=== PATIENT | female | born 1955 | race Caucasian/White ===

== ENCOUNTER 2018-03-28 12:17 | Outpatient (CLI) | payer OTHER ==
--- NOTE | 2018-03-29 10:01 | PET ---
PET EXAM WITH CT ATTENUATION CORRECTION: Date: 03/28/18 HISTORY: Cervical cancer. COMPARISON: None. TECHNIQUE: The patient was administered 13.8 mCi of F18-FDG. PET scan with CT attenuation correction was obtaine d from the skull base to the proximal thighs. FINDINGS: HEAD/NECK: No abnormal FDG localization. CHEST: No abnormal FDG localization. ABDOMEN/PELVIS: There is increased FDG avidity involving the left periaortic lymph nodes. The maximum SUV ranges betw een 2.0 and 3.1. There is increased FDG avidity involving left external iliac lymph nodes with a maximum SUV of 3.3. T here is FDG avidity involving right external iliac lymph nodes with a maximum SUV of 2.7. There is marked FDG avidity involving the cervix with a maximum SUV of 13.3. There is marked FDG avidity along the posterior left hemipelvis, which corresponds to the distal left ureter. OSSEOUS STRUCTURES: No abnormal FDG localization. IMPRESSION: FDG avidity involving the cervix, compatible with patient's reported history of primary cervical canc er. There is evidence of metastasis involving bilateral external iliac, as well as left periaortic/re troperitoneal lymph nodes. POS: JACOB
== END 2018-03-28 12:18 | disposition home or self-care (01) ==
LOC: PET 12:17
PROVIDERS: ATTEND Internal Medicine Hematology & Oncology
DX: C53.9 Malignant neoplasm of cervix uteri, unspecified (principal)
CPT/HCPCS: 78815; A9552

== ENCOUNTER 2018-04-22 18:23 | Inpatient (IN) | payer OTHER ==
[2018-04-22 19:38] LABS: Anion Gap 13 mmol/L (10-20); BUN (Urea Nitrogen) 23 mg/dL (9.8-20.1); Calc. Creatinine Clearance 0 mL/min (70-130); Calcium 6.7 mg/dL (7.8-10.44); Carbon Dioxide 18 mmol/L (22-29); Chloride 105 mmol/L (98-107); Estimated GFR-MDRD 39; Glucose 117 mg/dL (70-105); Potassium 3.3 mmol/L (3.5-5.1); Sodium 133 mmol/L (136-145)
[2018-04-22 19:39] LABS: INR-International Normal Ratio 15.3
[2018-04-22 19:50] LABS: Anisocytosis SLIGHT = 6-15 cells (100X) (0-5/hpf); Band 45 % (5-11); Eosinophils 4 % (0-10); Hemoglobin 9.2 g/dL (12.0-16.0); Large Platelets SLIGHT; Lymphocytes 10 % (21-51); MDiff Complete? YES; Mean Corpuscular HGB CONC 35.2 g/dL (32.0-36.0); Mean Corpuscular Hemoglobin 29.5 pg (27.0-31.0); Mean Corpuscular Volume 83.9 fL (78.0-98.0); Monocytes 4 % (0-10); Neutrophil 37 % (42-75); PLT Morphology Comment Appears Decreased; Platelet Count 79 thou/uL (130-400); Polychromasia SLIGHT = 2-3 cells (100X) (0-2/hpf); RBC Distribution Width 12.5 % (11.5-14.5); Reflex for Review?? NO; Target Cells SLIGHT = 2-5 cells (100X) (0-1/hpf); White Blood Cell (WBC) Count 1.9 thou/uL (4.8-10.8)
[2018-04-22] MEDS ORDERED: Potassium Chloride 10 MEQ/100 ML PREMIX BAG ONE (20:35)
[2018-04-22] MEDS ORDERED: Phytonadione 10 MG/ML AMP ONE (20:36)
[2018-04-22] MEDS ORDERED: NS 0.9% w/ 20 MEQ KCL 1,000 ML ONE (20:41)
[2018-04-22 23:07] VITALS: BMI 28.5
[2018-04-22] MEDS ORDERED: Ondansetron ODT 4 MG TAB SL PRN (23:09)
[2018-04-22] MEDS ORDERED: Ondansetron HCl/PF 4 MG/2 ML Vial IVP PRN (23:09)
[2018-04-22] MEDS ORDERED: NS 0.9% w/ 20 MEQ KCL 1,000 ML IV SCH (23:15)
[2018-04-23] MEDS ORDERED: Prochlorperazine Maleate 5 MG TAB PO PRN (04:24)
[2018-04-23 05:06] LABS: Hemoglobin 9.3 g/dL (12.0-16.0)
[2018-04-23] MEDS ORDERED: Eucerin (Mineral Oil/Petrolatum,White) 30 gm Jar TOP PRN (06:49)
[2018-04-23] MEDS ORDERED: Ondansetron HCl/PF 4 MG/2 ML Vial IVP PRN (06:49)
[2018-04-23] MEDS ORDERED: Senokot 8.6 MG TAB PO PRN (06:49)
[2018-04-23] MEDS ORDERED: Acetaminophen 325 MG TAB PO PRN (06:49)
[2018-04-23] MEDS ORDERED: Loratadine 10 MG TAB PO PRN (06:49)
[2018-04-23] MEDS ORDERED: Loperamide HCl 2 MG CAP PO PRN (06:49)
[2018-04-23] MEDS ORDERED: Ondansetron ODT 4 MG TAB PO PRN (06:49)
[2018-04-23] MEDS ORDERED: Chloraseptic Spray 180 ml Bottle PO PRN (06:49)
[2018-04-23] MEDS ORDERED: Zolpidem Tartrate 5 MG TAB PO PRN (06:49)
[2018-04-23] MEDS ORDERED: Mag-Al 1200 mg/1200 mg/30 ML UDCUP PO PRN (06:49)
[2018-04-23] MEDS ORDERED: Milk Of Magnesia 30 ML UDCUP PO PRN (06:49)
[2018-04-23] MEDS ORDERED: Sodium Chloride 0.65% Nasal 44 ML BOT EA NARE PRN (06:49)
[2018-04-23] MEDS ORDERED: Artificial Tears 18 DROP/0.9 ML EA EYE PRN (06:49)
[2018-04-23] MEDS ORDERED: Diabetic Tussin 200 MG/10 ML UDCUP PO PRN (06:49)
[2018-04-23] MEDS ORDERED: 1/2 NS w/KCL 20 mEq 1,000 ML IV SCH (07:00)
[2018-04-23 07:47] LABS: INR-International Normal Ratio 2.4; PTT 49.2 SEC (22.9-36.1); Prothrombin Time 26.4 SEC (12.0-14.7)
[2018-04-23 07:51] LABS: #Eosinphils 0.1 thou/uL (0.0-0.7); #Lymphocytes 0.2 thou/uL (1.20-3.40); #Monocytes 0.2 thou/uL (0.11-0.59); #Neutrophils 1.6 thou/uL (1.40-6.50); %Basophils 0.3 % (0.0-1.0); %Eosinophils 2.6 % (0.0-10.0); %Monocytes 9.6 % (0.0-10.0); %Neutrophils 78.5 % (42.0-75.0); Mean Corpuscular HGB CONC 33.7 g/dL (32.0-36.0); Mean Corpuscular Hemoglobin 30.1 pg (27.0-31.0); Mean Corpuscular Volume 89.5 fL (78.0-98.0); Platelet Count 90 thou/uL (130-400); RBC Distribution Width 13.8 % (11.5-14.5); Red Blood Cell (RBC) Count 2.99 mill/uL (4.20-5.40)
[2018-04-23 07:58] LABS: Anion Gap 14 mmol/L (10-20); BUN (Urea Nitrogen) 28 mg/dL (9.8-20.1); Calc. Creatinine Clearance 50 mL/min (70-130); Calcium 6.9 mg/dL (7.8-10.44); Carbon Dioxide 18 mmol/L (22-29); Chloride 106 mmol/L (98-107); Estimated GFR-MDRD 39; Glucose 91 mg/dL (70-105); Magnesium 1.6 mg/dL (1.6-2.6); Phosphorus 3.4 mg/dL (2.3-4.7); Potassium 3.8 mmol/L (3.5-5.1); Sodium 134 mmol/L (136-145)
[2018-04-23 08:07] LABS: Lactic Acid 0.8 mmol/L (0.5-2.2)
[2018-04-23] MEDS: Famotidine 20 MG TAB PO SCH (10:16)
[2018-04-23] MEDS: Saccharomyces boulardii 250 MG CAP PO SCH (10:17)
--- NOTE | 2018-04-23 11:04 | HP ---
PRIMARY CARE PHYSICIAN: Dr. Miguelito Bermeo. PRIMARY ONCOLOGIST: Dr. Maria E Lee. REASON FOR ADMISSION: Coumadin toxicity, diarrhea. HISTORY OF PRESENT ILLNESS: A 62-year-old female who has history of mechanical aortic valve replacement done about 13 years ago and she is chronically on warfarin therapy. She required aortic valve replacement because of her childhood history of rheumatic fever. Normally, patient's Coumadin level monitored by Dr. Miguelito Bermeo. The patient reports that for the last couple of months, she was busy with her new diagnosis of cancer related treatment and investigation and that is why she was not able to make appointment with Dr. Bermeo and she did not check her warfarin level. She was taking warfarin 4 mg daily basis. The patient has diagnosis of cervical and ovarian cancer and she is following Dr. Marina in [place]. She is planned for intracervical radiation therapy in coming weeks. The patient is getting chemotherapy here locally through Dr. Sanderson. The patient gets chemotherapy every . She reports that she had a total of 4-week cycles of chemotherapy and she is going to get 2 more chemotherapy cycle in coming weeks. The patient is also getting radiation therapy Wednesday to Wednesday for last 4 weeks. Patient saw primary oncologist yesterday and patient's routine blood tests showed INR 13. Patient normally gets diarrhea after chemotherapy and patient was having several loose bowel movement. Yesterday, she was not exposed to any antibiotic therapy. She was not having any nausea or vomiting. She did not have any fever, chills, lightheadedness, dizziness. She denies any trauma. She denies any kind of blood loss anywhere from her body. She was instructed to go to emergency room for evaluation. She went to [facility] where they did routine blood tests and patient was found with an INR 15 and subsequently patient was transferred to our hospital and she was admitted to telemetry floor as a full admission. Patient reports that after taking Imodium , patient's diarrhea is also getting better. When I saw her this morning, patient wanted to eat food. Patient was given Vitamin K 5 mg IM at [facility] and patient was also given IV fluid with potassium. Currently, patient is feeling much better. REVIEW OF SYSTEMS: The following complete review of systems was negative, unless otherwise mentioned in the HPI or below: Constitutional: Weight loss or gain, ability to conduct usual activities. Skin: Rash, itching. Eyes: Double vision, pain. ENT/Mouth: Nose bleeding, neck stiffness, pain, tenderness. Cardiovascular: Palpitations, dyspnea on exertion, orthopnea. Respiratory: Shortness of breath, wheezing, cough, hemoptysis, fever or night sweats. Gastrointestinal: Poor appetite, abdominal pain, heartburn, nausea, vomiting, constipation, or diarrhea. Genitourinary: Urgency, frequency, dysuria, nocturia. Musculoskeletal: Pain, swelling. Neurologic/Psychiatric: Anxiety, depression. Allergy/Immunologic: Skin rash, bleeding tendency. Please see my HPI for pertinent positive and negative. All other review of systems reviewed and negative except as mentioned in the HPI. PAST MEDICAL HISTORY: History of rheumatic fever when she was a child, rheumatic heart disease required aortic valve replacement, recent diagnosis of cervical or ovarian cancer, hypertension, chronic anticoagulation with warfarin due to mechanical aortic valve. PAST SURGICAL HISTORY: Aortic valve replacement and cholecystectomy. PAST PSYCHIATRIC HISTORY: Reviewed and negative. SOCIAL HISTORY: Patient smokes about half pack per day. She denies any alcohol abuse. She denies any other illicit drug abuse. She lives at home with family. She is . FAMILY HISTORY: No strong family history of premature coronary artery disease, stroke or cancer. ALLERGIES: No known drug allergy. CURRENT HOME MEDICATIONS: Coreg 25 mg p.o. b.i.d., Lomotil 2 tablets p.o. as directed, Zofran ODT 8 mg q.8 hourly p.r.n., potassium chloride 20 mEq p.o. daily, prochlorperazine 10 mg q.4 hourly p.r.n., ramipril 10 mg p.o. b.i.d., warfarin 4 mg p.o. daily. EMERGENCY ROOM COURSE: Patient was given vitamin K 5 mg IM and potassium chloride with IV fluid. PHYSICAL EXAMINATION: VITAL SIGNS: On arrival, blood pressure 120/58, pulse 77, respiratory rate 20, temperature 98.0, saturation 100% on room air, weight 66.2 kilogram. GENERAL: Patient is currently alert, awake, no obvious acute distress. HEAD: Normocephalic, atraumatic. EYES: Pupils round, reactive to light. Extraocular muscle intact. ENT: Oropharynx within normal limits. Moist mucous membranes. No oral lesion , no pharyngeal erythema, no exudate. NECK: Supple, no JVD, no thyromegaly, no carotid bruit, no jugular venous distention. LUNGS: Clear to auscultation without any rhonchi or rales. CARDIAC: S1 and S2 regular. No murmur, no gallop, no rub. ABDOMEN: Soft, bowel sounds present, nontender, nondistended. No organomegaly , no peritoneal sign, no guarding, no rigidity, no rebound. BACK: Examination unremarkable, no CVA tenderness. EXTREMITIES: Upper extremity passive movements of all joints are normal. Lower extremity passive movements of all joints are normal. No edema. Good peripheral pulsation. SKIN: No skin rash. HEMATOLOGICAL SYSTEM: No lymphadenopathy. PSYCHIATRIC: Normal affect. NEUROLOGIC: Nonfocal examination. SIGNIFICANT LABORATORY DATA: CBC: WBC 1.9, hemoglobin 9.2, platelets 79. INR 15.3. Sodium 133, potassium 3.3, chloride 105, carbon dioxide 18, anion gap 13 , BUN 23, creatinine 1.37, glucose 117, calcium 6.7, phosphorus 3.4, magnesium 1.6, lactic acid 0.8. ASSESSMENT AND PLAN: 1. Warfarin induced coagulopathy, likely due to her noncompliance with monitoring. Patient did not check her INR for 2 months and she was on warfarin 4 mg p.o. daily. In the emergency room, she was given vitamin K 5 mg and she has received 2 units of FFP. In this way we have reversed her warfarin induced coagulopathy. We will repeat PT/INR and if level goes below 2, then we will start warfarin 4 mg p.o. daily. I provided patient education to monitor INR through Dr. Sanderson's office versus primary care physician. The patient does not have any active bleeding from any site with this coagulopathy. 2. Pancytopenia, likely related with chemotherapy. Patient has leukopenia, anemia, and thrombocytopenia. She is receiving every week chemotherapy and last chemotherapy was on last . 3. Diarrhea, likely related with chemo side effects. The patient clinically appeared dehydrated. The patient is given IV fluid with KCl at 75 mL per hour. We are going to send stool for infection workup if patient able to give samples to rule out undiagnosed stool infection which is less likely. At this point, we will not start any antibiotic therapy given her hemodynamic stability and afebrile nature. 4. Volume depletion, likely due to diarrhea. As mentioned above, we are continuing with IV fluid with NS with KCl and we will repeat labs tomorrow. 5. Hyponatremia and hypokalemia. We are replacing NS with KCl and we will repeat a BMP tomorrow. 6. Acute/chronic kidney failure. We will monitor renal function and avoid nephrotoxin agents 7. Tobacco abuse disorder. Smoking cessation counseling given. Healthy lifestyle measures discussed with the patient. 8. Hypertension. We will continue Coreg 25 mg p.o. b.i.d. and ramipril 10 mg p.o. b.i.d. if blood pressure permits. 9. History of cervical and ovarian cancer on chemoradiation therapy. Patient will follow up with Dr. Sanderson after discharge and we will consult while in hospital as well. 10. Deep venous thrombosis prophylaxis, SCD boots. No Lovenox because of low platelet count. 11. Gastrointestinal prophylaxis, Pepcid 20 mg p.o. daily. CODE STATUS: Patient is FULL CODE. Patient's is surrogate decision maker. Disposition plan based on clinical course. We are expecting patient's stay in hospital more than 2 midnights. Plan of care discussed with the patient in detail. MTDD
[2018-04-23] MEDS: 1/2 NS w/KCL 20 mEq 1,000 ML IV SCH (12:47)
[2018-04-23 13:34] LABS: INR-International Normal Ratio 1.6
[2018-04-23] MEDS ORDERED: Warfarin Sodium 2 MG TAB PO SCH (17:00)
[2018-04-23] MEDS ORDERED: Carvedilol 25 MG TAB PO SCH (17:15)
[2018-04-23] MEDS ORDERED: Ramipril 5 MG CAP PO SCH (17:15)
--- NOTE | 2018-04-23 18:26 | CON ---
DATE OF CONSULTATION: 04/23/2018 HISTORY OF PRESENT ILLNESS: Ms. Cordero is a 62-year-old female with locally advanced cervical cancer , currently getting treatment with chemotherapy and radiation. She also has a history of aortic valv e replacement, on Coumadin. For the last week to 10 days, she has had increasing diarrhea as well a s decreased oral intake and has felt poorly. She came into the office on the day of admission with i ncreasing diarrhea and volume depletion. She was hydrated and sent home, but her INR was checked and her INR was up to 13. She has not had her INR checked in over a month and was taking the same dose of Coumadin despite decreased oral intake. She was sent to the emergency room, but denies any bleedi ng. She did have some easy bruising, but no nosebleeds, no gum bleeding, no rectal bleeding, no gigi turia. She is weak and tired from the diarrhea, mostly. She even has had some incontinence. She kamara s tried to start oral potassium, magnesium, but this has made the diarrhea worse. This morning, she is feeling somewhat better after being hydrated overnight and her INR was 15 upon admission, but is d own to 2.4 this morning. PAST MEDICAL HISTORY: 1. Mechanical valve replacement with a history of rheumatic fever as a child. 2. Recent diagnosis of stage III cervical cancer. 3. Hypertension. CURRENT MEDICATIONS: 1. Tylenol p.r.n. 2. [place] p.r.n. 3. Maalox p.r.n. 4. Pepcid 20 mg p.o. q. day. 5. Guaifenesin p.r.n. 6. Hydralazine 10 mg IV q.4 hours p.r.n. 7. Imodium 2 mg p.o. q. 2 hours p.r.n. 8. Claritin 10 mg p.o. q. day. 9. Milk of magnesia 30 mL p.o. q. day. 10. Zofran 4 mg p.o. q.6 hours p.r.n. 11. Zofran 4 mg IV q.6 hours p.r.n. 12. Half normal saline with potassium chloride. 13. Compazine 10 mg p.o. q. 4 hours p.r.n. 14. Florastor 250 mg p.o. q. day. 15. Senokot 2 tabs p.o. at bedtime p.r.n. 16. Refugio nasal spray. 17. Ambien 5 mg p.o. at bedtime. ALLERGIES: No known drug allergies. FAMILY HISTORY: Noncontributory. SOCIAL HISTORY: She is here with her and granddaughter, who appear quite supportive. She de nies current tobacco use, nothing other than occasional alcohol use. REVIEW OF SYSTEMS: Otherwise, 10-point review of systems is negative. PHYSICAL EXAMINATION: VITAL SIGNS: Temperature 97.2, respirations 16, pulse 66, O2 sat 97% on room air, and blood pressure 146/85. GENERAL: She is quite conversant in bed, in no acute distress. HEENT: Extraocular muscles are intact. Pupils round, and reactive to light. She has no oral cavity lesions. NECK: Supple, without lymphadenopathy. HEART: Regular rhythm with a 2/6 systolic murmur. LUNGS: Clear to auscultation bilaterally. ABDOMEN: Hypoactive bowel sounds. Soft, nontender, nondistended. EXTREMITIES: No edema, no tenting, no clubbing. LABORATORY DATA: White blood cell count 2.0, hemoglobin 9.0, platelets 90. INR 15.3 on admission do wn to 2.4. Sodium 134, potassium 3.8, chloride 106, CO2 of 18, BUN 28, creatinine 1.3, glucose 91, c alcium 6.9, phos 3.4, and magnesium 1.6. ASSESSMENT: Ms. Cordero is a 62-year-old female with: 1. 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 2. Diarrhea secondary to radiation and chemotherapy. 3. Volume depletion secondary to diarrhea. 4. Coagulopathy secondary to Coumadin and poor oral intake. 5. History of mechanical valve replacement. PLAN: 1. She has already been hydrated. We are following her potassium and magnesium closely. I would re commend if her INR falls below 2 that she be started on anticoagulation since she does have a mechani mor valve. 2. Continue Imodium and Lomotil. 3. Clostridium difficile has been checked on her stool and we will follow this up.
[2018-04-24] MEDS: 1/2 NS w/KCL 20 mEq 1,000 ML IV SCH (01:34)
[2018-04-24 04:58] LABS: INR-International Normal Ratio 1.2; Prothrombin Time 14.8 SEC (12.0-14.7)
[2018-04-24 06:45] LABS: Hemoglobin 8.9 g/dL (12.0-16.0); Platelet Count 111 thou/uL (130-400)
[2018-04-24] MEDS ORDERED: Enoxaparin Sodium 40 MG/0.4 ML SYRINGE SC SCH (08:30)
[2018-04-24] MEDS: Famotidine 20 MG TAB PO SCH (08:42)
[2018-04-24] MEDS: Carvedilol 25 MG TAB PO SCH ×2 (08:42→20:23)
[2018-04-24] MEDS: Ramipril 5 MG CAP PO SCH ×2 (08:42→20:23)
[2018-04-24] MEDS: Saccharomyces boulardii 250 MG CAP PO SCH (08:42)
--- NOTE | 2018-04-24 10:05 | PDOC.PN ---
- Subjective Encounter Start Date: 04/24/18 Encounter Start Time: 08:30 -: old records requested/rev she has less diarrhoea, her inr is now subtherapeutic, no fever - Objective Resuscitation Status: Resuscitation Status FULL:Full Resuscitation MAR Reviewed: Yes Vital Signs & Weight: Vital Signs (12 hours) Temp Pulse Resp BP Pulse Ox 04/24/18 07:31 97.7 F 65 16 191/74 H 98 04/24/18 04:00 97.6 F 63 16 146/65 H 94 L 04/24/18 00:00 97.7 F 60 16 149/68 H 95 Weight Admit Weight 161 lb Weight 161 lb 4.8 oz I&O: 04/23/18 04/24/18 04/25/18 06:59 06:59 06:59 Intake Total 1831 Balance 1831 Result Diagrams: 04/24/18 04:21 04/23/18 07:12 EKG Reviewed by me: Yes (nsr) Phys Exam - Physical Examination Constitutional: NAD HEENT: PERRLA, moist MMs, sclera anicteric Neck: no JVD, supple Respiratory: no wheezing, no rales, no rhonchi Cardiovascular: RRR, no significant murmur, no rub prosthetic click+ Gastrointestinal: soft, non-tender, no distention, positive bowel sounds Musculoskeletal: no edema, pulses present Neurological: non-focal, normal sensation, moves all 4 limbs Lymphatic: no nodes Psychiatric: normal affect, A&O x 3 Skin: no rash, normal turgor Dx/Plan (1) Warfarin-induced coagulopathy Code(s): D68.32 - HEMORRHAGIC DISORD D/T EXTRINSIC CIRCULATING ANTICOAGULANTS; T45.515A - ADVERSE EFFECT OF ANTICOAGULANTS, INITIAL ENCOUNTER Status: Resolved (2) Diarrhea Code(s): R19.7 - DIARRHEA, UNSPECIFIED Status: Acute (3) Pancytopenia due to chemotherapy Code(s): D61.810 - ANTINEOPLASTIC CHEMOTHERAPY INDUCED PANCYTOPENIA Status: Acute (4) Volume depletion Code(s): E86.9 - VOLUME DEPLETION, UNSPECIFIED Status: Resolved (5) Hyponatremia Code(s): E87.1 - HYPO-OSMOLALITY AND HYPONATREMIA Status: Resolved (6) Hypokalemia Code(s): E87.6 - HYPOKALEMIA Status: Resolved (7) Cervical cancer Code(s): C53.9 - MALIGNANT NEOPLASM OF CERVIX UTERI, UNSPECIFIED Status: Chronic (8) Hypertension Code(s): I10 - ESSENTIAL (PRIMARY) HYPERTENSION Status: Chronic - Plan cont current plan of care, plan discussed w/ family * will give lovenox one dose * increase warfarin 4 mg today * repeat labs tomorrow * will ask radiation oncology if they can do radiation in hospital before discharge or she has to maintain her regular time in case she can be discharged tomorrow * medication reviewed as below * symptomatic treatment * discussed with family. Review of Systems - Review of Systems Eyes: negative: Pain, Vision Change, Conjunctivae Inflammation, Eyelid Inflammation, Redness, Other ENT: negative: Ear Pain, Ear Discharge, Nose Pain, Nose Discharge, Nose Congestion, Mouth Pain, Mouth Swelling, Throat Pain, Throat Swelling, Other Respiratory: negative: Cough, Dry, Shortness of Breath, Hemoptysis, SOB with Excertion, Pleuritic Pain, Sputum, Wheezing Cardiovascular: negative: chest pain, palpitations, orthopnea, paroxysmal nocturnal dyspnea, edema, light headedness, other Gastrointestinal: Diarrhea. negative: Nausea, Vomiting, Abdominal Pain, Constipation, Melena, Hematochezia, Other Genitourinary: negative: Dysuria, Frequency, Incontinence, Hematuria, Retention , Other Musculoskeletal: negative: Neck Pain, Shoulder Pain, Arm Pain, Back Pain, Hand Pain, Leg Pain, Foot Pain, Other Skin: negative: Rash, Lesions, Phil, Bruising, Other - Medications/Allergies Allergies/Adverse Reactions: Allergies Allergy/AdvReac Type Severity Reaction Status Date / Time No Known Drug Allergies Allergy Verified 04/22/18 23:06 Medications: Current Medications Acetaminophen (Tylenol) 650 mg PO Q4H PRN PRN Reason: Headache/Fever or Pain Hydrocodone Bitart/Acetaminophen ([place] 5/325) 1 tab PO Q4H PRN PRN Reason: Moderate Pain (4-6) Al Hydroxide/Mg Hydroxide (Maalox) 30 ml PO Q6H PRN PRN Reason: Heartburn or Indigestion Artificial Tears (Tears Naturale) 0 drop EA EYE PRN PRN PRN Reason: Dry Eyes Carvedilol (Coreg) 25 mg PO BID VAR[facility] Last Admin: 04/24/18 08:42 Dose: 25 mg Enoxaparin Sodium (Lovenox) 30 mg SC ONE [facility] Enoxaparin Sodium (Lovenox) 70 mg SC 0900,2100 [facility] Famotidine (Pepcid) 20 mg PO DAILY [facility] Last Admin: 04/24/18 08:42 Dose: 20 mg Guaifenesin (Robitussin Sf) 200 mg PO Q4H PRN PRN Reason: Cough Hydralazine HCl (Apresoline) 10 mg SLOW IVP Q4H PRN PRN Reason: Systolic BP > 180 Loperamide HCl (Imodium) 2 mg PO PRN PRN PRN Reason: Diarrhea/Loose Stools Loratadine (Claritin) 10 mg PO DAILYPRN PRN PRN Reason: Sinus Symptoms Magnesium Hydroxide (Milk Of Magnesium) 30 ml PO DAILYPRN PRN PRN Reason: Constipation Mineral Oil/White Petrolatum (Eucerin Cream) 0 gm TOP BIDPRN PRN PRN Reason: Dry Skin Ondansetron HCl (Zofran Odt) 4 mg PO Q6H PRN PRN Reason: Nausea/Vomiting Ondansetron HCl (Zofran) 4 mg IVP Q6H PRN PRN Reason: Nausea/Vomiting Phenol (Chloraseptic [place] 180 Ml Bot) 0 ml PO PRN PRN PRN Reason: Sore Throat Prochlorperazine Maleate (Compazine) 10 mg PO Q4H PRN PRN Reason: Nausea Ramipril (Altace) 10 mg PO BID [facility] Last Admin: 04/24/18 08:42 Dose: 10 mg Saccharomyces Boulardii (Florastor) 250 mg PO DAILY [facility] Last Admin: 04/24/18 08:42 Dose: 250 mg Senna (Senokot) 2 tab PO HSPRN PRN PRN Reason: Constipation Sodium Chloride ([place] Nasal [place] 0.65%) 0 ml EA NARE QIDPRN PRN PRN Reason: Nasal Congestion Warfarin Sodium (Coumadin) 4 mg PO 1700 [facility] Zolpidem Tartrate (Ambien) 5 mg PO HSPRN PRN PRN Reason: Insomnia
[2018-04-24] MEDS ORDERED: Enoxaparin Sodium 30 MG/0.3 ML SYRINGE SC SCH (10:30)
[2018-04-24] MEDS: hydrALAZINE 20 MG/ML VIAL SLOW IVP PRN (11:06)
[2018-04-24 16:06] LABS: Hemoglobin 8.9 g/dL (12.0-16.0); Platelet Count 84 thou/uL (130-400)
[2018-04-24] MEDS: Warfarin Sodium 2 MG TAB PO SCH (16:11)
[2018-04-24] MEDS: Enoxaparin Sodium 80 MG/0.8 ML SYRINGE SC SCH (20:23)
[2018-04-24] MEDS: HYDROcodone/Acetaminophen 5/325 mg Tablet PO PRN (20:24)
[2018-04-25 04:53] LABS: INR-International Normal Ratio 1.1; Prothrombin Time 14.7 SEC (12.0-14.7)
[2018-04-25 04:57] LABS: #Lymphocytes 0.3 thou/uL (1.20-3.40); #Monocytes 0.2 thou/uL (0.11-0.59); #Neutrophils 1.6 thou/uL (1.40-6.50); %Eosinophils 1.8 % (0.0-10.0); %Lymphocytes 14.1 % (21.0-51.0); %Monocytes 9.6 % (0.0-10.0); %Neutrophils 74.6 % (42.0-75.0); Hemoglobin 8.9 g/dL (12.0-16.0); Mean Corpuscular Hemoglobin 31.7 pg (27.0-31.0); Mean Corpuscular Volume 90.4 fL (78.0-98.0); Mean Platelet Volume 8.4 fL (7.4-10.4); Platelet Count 82 thou/uL (130-400); RBC Distribution Width 13.9 % (11.5-14.5); Red Blood Cell (RBC) Count 2.81 mill/uL (4.20-5.40); White Blood Cell (WBC) Count 2.2 thou/uL (4.8-10.8)
[2018-04-25 05:14] LABS: ALT (SGPT) 13 U/L (8-55); AST (SGOT) 13 U/L (5-34); Albumin 3.2 g/dL (3.5-5.0); Alkaline Phosphatase 126 U/L (40-150); Anion Gap 13 mmol/L (10-20); BUN (Urea Nitrogen) 25 mg/dL (9.8-20.1); Bilirubin, Total 0.7 mg/dL (0.2-1.2); Calc. Creatinine Clearance 68 mL/min (70-130); Calcium 7.9 mg/dL (7.8-10.44); Carbon Dioxide 18 mmol/L (22-29); Chloride 107 mmol/L (98-107); Estimated GFR-MDRD 56; Globulin 2.9 g/dL (2.4-3.5); Glucose 89 mg/dL (70-105); Potassium 3.5 mmol/L (3.5-5.1); Protein, Total 6.1 g/dL (6.0-8.3); Sodium 134 mmol/L (136-145)
[2018-04-25] MEDS: Saccharomyces boulardii 250 MG CAP PO SCH (08:34)
[2018-04-25] MEDS: Carvedilol 25 MG TAB PO SCH ×2 (08:34→20:21)
[2018-04-25] MEDS: Ramipril 5 MG CAP PO SCH ×2 (08:34→20:21)
[2018-04-25] MEDS: Famotidine 20 MG TAB PO SCH (08:34)
[2018-04-25] MEDS: Enoxaparin Sodium 80 MG/0.8 ML SYRINGE SC SCH ×2 (08:34→20:22)
[2018-04-25] MEDS: HYDROcodone/Acetaminophen 5/325 mg Tablet PO PRN ×2 (10:45→20:29)
--- NOTE | 2018-04-25 11:15 | PDOC.PN ---
- Subjective Encounter Start Date: 04/25/18 Encounter Start Time: 09:00 Patient seen and examined. No new complaints. No overnight events she denies chest pain,dyspnea, now her INR is subtherapeutic - Objective Resuscitation Status: Resuscitation Status FULL:Full Resuscitation MAR Reviewed: Yes Vital Signs & Weight: Vital Signs (12 hours) Temp Pulse Resp BP Pulse Ox 04/25/18 08:00 97.7 F 74 14 179/74 H 96 04/25/18 03:43 97.8 F 68 16 141/63 H 94 L 04/24/18 23:42 97.8 F 65 16 171/70 H 95 Weight Admit Weight 161 lb Weight 161 lb 4.8 oz I&O: 04/24/18 04/25/18 04/26/18 06:59 06:59 06:59 Intake Total 1831 860 Balance 1831 860 Result Diagrams: 04/25/18 04:22 04/25/18 04:22 EKG Reviewed by me: Yes (nsr) Phys Exam - Physical Examination Constitutional: NAD HEENT: PERRLA, moist MMs, sclera anicteric Neck: no JVD, supple Respiratory: no wheezing, no rales, no rhonchi Cardiovascular: RRR, no significant murmur, no rub prosthetic click+ Gastrointestinal: soft, non-tender, no distention, positive bowel sounds Musculoskeletal: no edema, pulses present Neurological: non-focal, normal sensation, moves all 4 limbs Psychiatric: normal affect, A&O x 3 Skin: no rash, normal turgor Dx/Plan (1) Warfarin-induced coagulopathy Code(s): D68.32 - HEMORRHAGIC DISORD D/T EXTRINSIC CIRCULATING ANTICOAGULANTS; T45.515A - ADVERSE EFFECT OF ANTICOAGULANTS, INITIAL ENCOUNTER Status: Resolved (2) Diarrhea Code(s): R19.7 - DIARRHEA, UNSPECIFIED Status: Resolved Comment: due to chemotherapy and radiation therapy for cervical cancer (3) Pancytopenia due to chemotherapy Code(s): D61.810 - ANTINEOPLASTIC CHEMOTHERAPY INDUCED PANCYTOPENIA Status: Acute (4) Volume depletion Code(s): E86.9 - VOLUME DEPLETION, UNSPECIFIED Status: Resolved (5) Hyponatremia Code(s): E87.1 - HYPO-OSMOLALITY AND HYPONATREMIA Status: Resolved (6) Hypokalemia Code(s): E87.6 - HYPOKALEMIA Status: Resolved (7) Cervical cancer Code(s): C53.9 - MALIGNANT NEOPLASM OF CERVIX UTERI, UNSPECIFIED Status: Chronic (8) Hypertension Code(s): I10 - ESSENTIAL (PRIMARY) HYPERTENSION Status: Chronic - Plan cont current plan of care * as she has mechanical aortic valve, she will need lovenox with warfarin until INR is acceptable * she will be transferred to oncology floor * DC tele * medication reviewed as below * symptomatic treatment * monitor labs. Review of Systems - Review of Systems Eyes: negative: Pain, Vision Change, Conjunctivae Inflammation, Eyelid Inflammation, Redness, Other ENT: negative: Ear Pain, Ear Discharge, Nose Pain, Nose Discharge, Nose Congestion, Mouth Pain, Mouth Swelling, Throat Pain, Throat Swelling, Other Respiratory: negative: Cough, Dry, Shortness of Breath, Hemoptysis, SOB with Excertion, Pleuritic Pain, Sputum, Wheezing Cardiovascular: negative: chest pain, palpitations, orthopnea, paroxysmal nocturnal dyspnea, edema, light headedness, other Gastrointestinal: negative: Nausea, Vomiting, Abdominal Pain, Diarrhea, Constipation, Melena, Hematochezia, Other Genitourinary: negative: Dysuria, Frequency, Incontinence, Hematuria, Retention , Other Musculoskeletal: negative: Neck Pain, Shoulder Pain, Arm Pain, Back Pain, Hand Pain, Leg Pain, Foot Pain, Other - Medications/Allergies Allergies/Adverse Reactions: Allergies Allergy/AdvReac Type Severity Reaction Status Date / Time No Known Drug Allergies Allergy Verified 04/22/18 23:06 Medications: Current Medications Acetaminophen (Tylenol) 650 mg PO Q4H PRN PRN Reason: Headache/Fever or Pain Hydrocodone Bitart/Acetaminophen ([place] 5/325) 1 tab PO Q4H PRN PRN Reason: Moderate Pain (4-6) Last Admin: 04/25/18 10:45 Dose: 1 tab Al Hydroxide/Mg Hydroxide (Maalox) 30 ml PO Q6H PRN PRN Reason: Heartburn or Indigestion Artificial Tears (Tears Naturale) 0 drop EA EYE PRN PRN PRN Reason: Dry Eyes Carvedilol (Coreg) 25 mg PO BID [facility] Last Admin: 04/25/18 08:34 Dose: 25 mg Enoxaparin Sodium (Lovenox) 70 mg SC 0900,2100 [facility] Last Admin: 04/25/18 08:34 Dose: 70 mg Famotidine (Pepcid) 20 mg PO DAILY [facility] Last Admin: 04/25/18 08:34 Dose: 20 mg Guaifenesin (Robitussin Sf) 200 mg PO Q4H PRN PRN Reason: Cough Hydralazine HCl (Apresoline) 10 mg SLOW IVP Q4H PRN PRN Reason: Systolic BP > 180 Last Admin: 04/24/18 11:06 Dose: 10 mg Loperamide HCl (Imodium) 2 mg PO PRN PRN PRN Reason: Diarrhea/Loose Stools Loratadine (Claritin) 10 mg PO DAILYPRN PRN PRN Reason: Sinus Symptoms Magnesium Hydroxide (Milk Of Magnesium) 30 ml PO DAILYPRN PRN PRN Reason: Constipation Mineral Oil/White Petrolatum (Eucerin Cream) 0 gm TOP BIDPRN PRN PRN Reason: Dry Skin Ondansetron HCl (Zofran Odt) 4 mg PO Q6H PRN PRN Reason: Nausea/Vomiting Ondansetron HCl (Zofran) 4 mg IVP Q6H PRN PRN Reason: Nausea/Vomiting Phenol (Chloraseptic [place] 180 Ml Bot) 0 ml PO PRN PRN PRN Reason: Sore Throat Prochlorperazine Maleate (Compazine) 10 mg PO Q4H PRN PRN Reason: Nausea Ramipril (Altace) 10 mg PO BID [facility] Last Admin: 04/25/18 08:34 Dose: 10 mg Saccharomyces Boulardii (Florastor) 250 mg PO DAILY [facility] Last Admin: 04/25/18 08:34 Dose: 250 mg Senna (Senokot) 2 tab PO HSPRN PRN PRN Reason: Constipation Sodium Chloride ([place] Nasal [place] 0.65%) 0 ml EA NARE QIDPRN PRN PRN Reason: Nasal Congestion Warfarin Sodium (Coumadin) 4 mg PO 1700 [facility] Last Admin: 04/24/18 16:11 Dose: 4 mg Zolpidem Tartrate (Ambien) 5 mg PO HSPRN PRN PRN Reason: Insomnia
[2018-04-25] MEDS: hydrALAZINE 20 MG/ML VIAL SLOW IVP PRN ×2 (11:41→18:17)
[2018-04-25] MEDS: Warfarin Sodium 2 MG TAB PO SCH (18:17)
[2018-04-26 05:22] LABS: INR-International Normal Ratio 1.2; Prothrombin Time 14.9 SEC (12.0-14.7)
[2018-04-26] MEDS: Famotidine 20 MG TAB PO SCH (08:49)
[2018-04-26] MEDS: Saccharomyces boulardii 250 MG CAP PO SCH (08:49)
[2018-04-26] MEDS: Enoxaparin Sodium 80 MG/0.8 ML SYRINGE SC SCH ×2 (08:49→21:12)
[2018-04-26] MEDS: Carvedilol 25 MG TAB PO SCH ×2 (08:49→21:23)
[2018-04-26] MEDS: Ramipril 5 MG CAP PO SCH ×2 (08:50→21:22)
--- NOTE | 2018-04-26 08:51 | PDOC.PN ---
- Subjective Encounter Start Date: 04/26/18 Encounter Start Time: 06:30 pt still has some diarrhoea, still inr is subtherapeutic, no fever, - Objective Resuscitation Status: Resuscitation Status FULL:Full Resuscitation MAR Reviewed: Yes Vital Signs & Weight: Vital Signs (12 hours) Temp Pulse Resp BP Pulse Ox 04/26/18 07:55 98.6 F 79 16 172/68 H 92 L 04/26/18 03:59 97.8 F 95 20 142/59 H 96 04/26/18 00:00 97.7 F 75 18 121/59 L 95 Weight Admit Weight 161 lb Weight 161 lb 4.8 oz I&O: 04/25/18 04/26/18 04/27/18 06:59 06:59 06:59 Intake Total 860 500 Balance 860 500 Result Diagrams: 04/25/18 04:22 04/25/18 04:22 Phys Exam - Physical Examination Constitutional: NAD HEENT: PERRLA, moist MMs, sclera anicteric Neck: no JVD, supple Respiratory: no wheezing, no rales, no rhonchi Cardiovascular: RRR, no significant murmur, no rub Gastrointestinal: soft, non-tender, no distention, positive bowel sounds Musculoskeletal: no edema, pulses present Neurological: non-focal, normal sensation, moves all 4 limbs Psychiatric: normal affect, A&O x 3 Skin: no rash, normal turgor Dx/Plan (1) Warfarin-induced coagulopathy Code(s): D68.32 - HEMORRHAGIC DISORD D/T EXTRINSIC CIRCULATING ANTICOAGULANTS; T45.515A - ADVERSE EFFECT OF ANTICOAGULANTS, INITIAL ENCOUNTER Status: Resolved (2) Diarrhea Code(s): R19.7 - DIARRHEA, UNSPECIFIED Status: Acute Comment: due to chemotherapy and radiation therapy for cervical cancer (3) Pancytopenia due to chemotherapy Code(s): D61.810 - ANTINEOPLASTIC CHEMOTHERAPY INDUCED PANCYTOPENIA Status: Acute (4) Volume depletion Code(s): E86.9 - VOLUME DEPLETION, UNSPECIFIED Status: Resolved (5) Hyponatremia Code(s): E87.1 - HYPO-OSMOLALITY AND HYPONATREMIA Status: Resolved (6) Hypokalemia Code(s): E87.6 - HYPOKALEMIA Status: Resolved (7) Cervical cancer Code(s): C53.9 - MALIGNANT NEOPLASM OF CERVIX UTERI, UNSPECIFIED Status: Chronic (8) Hypertension Code(s): I10 - ESSENTIAL (PRIMARY) HYPERTENSION Status: Chronic - Plan cont current plan of care * will add lomotil as needed for diarrhoea, stool work up is negative for infection * will increase warfarin 6 mg po daily * continue lovenox and warfarin until inr is therapeutic, pt has mechanical mitral valve and therapeutic inr is essential * medication reviewed as below * symptomatic treatment. Review of Systems - Review of Systems Constitutional: negative: fever, chills, sweats, weakness, malaise, other Eyes: negative: Pain, Vision Change, Conjunctivae Inflammation, Eyelid Inflammation, Redness, Other ENT: negative: Ear Pain, Ear Discharge, Nose Pain, Nose Discharge, Nose Congestion, Mouth Pain, Mouth Swelling, Throat Pain, Throat Swelling, Other Respiratory: negative: Cough, Dry, Shortness of Breath, Hemoptysis, SOB with Excertion, Pleuritic Pain, Sputum, Wheezing Cardiovascular: negative: chest pain, palpitations, orthopnea, paroxysmal nocturnal dyspnea, edema, light headedness, other Gastrointestinal: Diarrhea. negative: Nausea, Vomiting, Abdominal Pain, Constipation, Melena, Hematochezia, Other Genitourinary: negative: Dysuria, Frequency, Incontinence, Hematuria, Retention , Other Musculoskeletal: negative: Neck Pain, Shoulder Pain, Arm Pain, Back Pain, Hand Pain, Leg Pain, Foot Pain, Other Skin: negative: Rash, Lesions, Phil, Bruising, Other - Medications/Allergies Allergies/Adverse Reactions: Allergies Allergy/AdvReac Type Severity Reaction Status Date / Time No Known Drug Allergies Allergy Verified 04/22/18 23:06 Medications: Current Medications Acetaminophen (Tylenol) 650 mg PO Q4H PRN PRN Reason: Headache/Fever or Pain Hydrocodone Bitart/Acetaminophen ([place] 5/325) 1 tab PO Q4H PRN PRN Reason: Moderate Pain (4-6) Last Admin: 04/25/18 20:29 Dose: 1 tab Al Hydroxide/Mg Hydroxide (Maalox) 30 ml PO Q6H PRN PRN Reason: Heartburn or Indigestion Artificial Tears (Tears Naturale) 0 drop EA EYE PRN PRN PRN Reason: Dry Eyes Carvedilol (Coreg) 25 mg PO BID VARUN Last Admin: 04/25/18 20:21 Dose: 25 mg Diphenoxylate HCl/Atropine (Lomotil) 1 tab PO Q6H PRN PRN Reason: Diarrhea/Loose Stools Enoxaparin Sodium (Lovenox) 70 mg SC 0900,2100 [facility] Last Admin: 04/25/18 20:22 Dose: 70 mg Famotidine (Pepcid) 20 mg PO DAILY [facility] Last Admin: 04/25/18 08:34 Dose: 20 mg Guaifenesin (Robitussin Sf) 200 mg PO Q4H PRN PRN Reason: Cough Hydralazine HCl (Apresoline) 10 mg SLOW IVP Q4H PRN PRN Reason: Systolic BP > 180 Last Admin: 04/25/18 18:17 Dose: 10 mg Loperamide HCl (Imodium) 2 mg PO PRN PRN PRN Reason: Diarrhea/Loose Stools Loratadine (Claritin) 10 mg PO DAILYPRN PRN PRN Reason: Sinus Symptoms Magnesium Hydroxide (Milk Of Magnesium) 30 ml PO DAILYPRN PRN PRN Reason: Constipation Mineral Oil/White Petrolatum (Eucerin Cream) 0 gm TOP BIDPRN PRN PRN Reason: Dry Skin Ondansetron HCl (Zofran Odt) 4 mg PO Q6H PRN PRN Reason: Nausea/Vomiting Ondansetron HCl (Zofran) 4 mg IVP Q6H PRN PRN Reason: Nausea/Vomiting Phenol (Chloraseptic [place] 180 Ml Bot) 0 ml PO PRN PRN PRN Reason: Sore Throat Prochlorperazine Maleate (Compazine) 10 mg PO Q4H PRN PRN Reason: Nausea Ramipril (Altace) 10 mg PO BID [facility] Last Admin: 04/25/18 20:21 Dose: 10 mg Saccharomyces Boulardii (Florastor) 250 mg PO DAILY [facility] Last Admin: 04/25/18 08:34 Dose: 250 mg Senna (Senokot) 2 tab PO HSPRN PRN PRN Reason: Constipation Sodium Chloride ([place] Nasal [place] 0.65%) 0 ml EA NARE QIDPRN PRN PRN Reason: Nasal Congestion Warfarin Sodium (Coumadin) 6 mg PO 1700 VARUN Zolpidem Tartrate (Ambien) 5 mg PO HSPRN PRN PRN Reason: Insomnia
[2018-04-26] MEDS: HYDROcodone/Acetaminophen 5/325 mg Tablet PO PRN ×3 (08:54→21:18)
[2018-04-26] MEDS: Warfarin Sodium 3 MG TAB PO SCH (16:45)
[2018-04-26] MEDS: Diphenoxylate HCl/Atropine Tablet PO PRN (21:23)
[2018-04-27 05:41] LABS: INR-International Normal Ratio 1.3; Prothrombin Time 16.2 SEC (12.0-14.7)
[2018-04-27 05:46] LABS: Anion Gap 15 mmol/L (10-20); BUN (Urea Nitrogen) 18 mg/dL (9.8-20.1); Calc. Creatinine Clearance 74 mL/min (70-130); Calcium 7.5 mg/dL (7.8-10.44); Carbon Dioxide 17 mmol/L (22-29); Chloride 104 mmol/L (98-107); Estimated GFR-MDRD 61; Glucose 96 mg/dL (70-105); Potassium 3.2 mmol/L (3.5-5.1); Sodium 133 mmol/L (136-145)
[2018-04-27 05:47] LABS: #Lymphocytes 0.3 thou/uL (1.20-3.40); #Monocytes 0.2 thou/uL (0.11-0.59); #Neutrophils 1.3 thou/uL (1.40-6.50); %Basophils 0.7 % (0.0-1.0); %Eosinophils 0.5 % (0.0-10.0); %Lymphocytes 17.5 % (21.0-51.0); %Monocytes 9.8 % (0.0-10.0); %Neutrophils 71.4 % (42.0-75.0); Hemoglobin 8.4 g/dL (12.0-16.0); Mean Corpuscular HGB CONC 33.8 g/dL (32.0-36.0); Mean Corpuscular Hemoglobin 30.6 pg (27.0-31.0); Mean Corpuscular Volume 90.4 fL (78.0-98.0); Mean Platelet Volume 8.3 fL (7.4-10.4); Platelet Count 78 thou/uL (130-400); RBC Distribution Width 14.1 % (11.5-14.5); Red Blood Cell (RBC) Count 2.74 mill/uL (4.20-5.40); White Blood Cell (WBC) Count 1.9 thou/uL (4.8-10.8)
[2018-04-27] MEDS: Famotidine 20 MG TAB PO SCH (09:31)
[2018-04-27] MEDS: Saccharomyces boulardii 250 MG CAP PO SCH (09:31)
[2018-04-27] MEDS: Carvedilol 25 MG TAB PO SCH ×2 (09:31→20:23)
[2018-04-27] MEDS: Ramipril 5 MG CAP PO SCH ×2 (09:31→20:22)
[2018-04-27] MEDS: Enoxaparin Sodium 80 MG/0.8 ML SYRINGE SC SCH (09:32)
[2018-04-27] MEDS: HYDROcodone/Acetaminophen 5/325 mg Tablet PO PRN ×3 (09:35→21:45)
[2018-04-27] MEDS: Diphenoxylate HCl/Atropine Tablet PO PRN (10:35)
[2018-04-27] MEDS: Warfarin Sodium 3 MG TAB PO SCH (17:04)
[2018-04-28 05:38] LABS: INR-International Normal Ratio 1.4; Prothrombin Time 17.6 SEC (12.0-14.7)
[2018-04-28] MEDS: HYDROcodone/Acetaminophen 5/325 mg Tablet PO PRN (07:57)
[2018-04-28] MEDS: Ramipril 5 MG CAP PO SCH (07:58)
[2018-04-28 07:59] VITALS: BP 180/74; TEMP 98.1
[2018-04-28] MEDS: Saccharomyces boulardii 250 MG CAP PO SCH (07:59)
[2018-04-28] MEDS: Famotidine 20 MG TAB PO SCH (07:59)
[2018-04-28] MEDS: Carvedilol 25 MG TAB PO SCH (07:59)
[2018-04-28] MEDS ORDERED: Carvedilol 25 MG TAB PO SCH (09:00)
[2018-04-28] MEDS ORDERED: NIFEdipine XL 30 MG TAB PO SCH (09:00)
[2018-04-28] MEDS ORDERED: Non-Formulary Item 1 EACH (Ramipril [Ramipril] 10 MG) PO SCH (09:00)
[2018-04-28 10:03] LABS: Hemoglobin 8.5 g/dL (12.0-16.0); Platelet Count 77 thou/uL (130-400)
--- NOTE | 2018-04-28 14:51 | DIS ---
DATE OF ADMISSION: 04/23/2018 DATE OF DISCHARGE: 04/28/2018 ADMITTING DIAGNOSIS: Warfarin-induced coagulopathy. DISCHARGE DIAGNOSIS: Warfarin-induced coagulopathy. SECONDARY DIAGNOSES: 1. Acute kidney failure. 2. Hyponatremia. 3. Hypokalemia. 4. History of hypertension. 5. History of cervical and ovarian cancer, on chemoradiation. CONSULTANTS INVOLVED IN THE CARE: Dr. Sanderson from Oncology. HISTORY OF PRESENT ILLNESS AND HOSPITAL COURSE: In brief, this is a 62-year-old female with a known history of mechanical aortic valve replacement done 13 years ago and she is on chronic Coumadin thera py with INR to be maintained at 2.5-3.5. The patient reports that she had a new diagnosis of cancer and was under treatment for that with Radiation Oncology. The patient saw primary care oncologist vandana faulkner was noted to have INR of 13 and she was sent to the [facility] ER where she was found to have INR of 15. She was subsequently transferred to this hospital and was started on vitamin K 5 mg initially at [place] [facility] and then was slowly monitored here. The patient had 2 units of FFP, which did help the INR to go down. Once the INR was back to normal, it was decided to bring the INR up to therapeutic range. So, she was continued on the Lovenox 70 mg b.i.d. along with increased dos e of Coumadin of 6 mg. The patient was having resistance to the vitamin K, so it took longer than ex pected. Finally, the INR started moving and was 1.4 on the day of discharge and the patient was advi sed to follow up with her primary care physician for recheck of INR every day and she was given Loven ox dose of 70 mg subcu b.i.d. for bridging. The patient was stable on the day of discharge. She was still getting radiation therapy every day for her cervical cancer. PHYSICAL EXAMINATION: On date of discharge, VITAL SIGNS: Blood pressures are 180/74, pulses 70, respirations 20, saturation 98%. GENERAL: The patient is moderately built and moderately nourished. She does not appear to be in any acute distress. CARDIOVASCULAR: S1, S2 normal. No murmurs, rubs or gallops. LUNGS: Bilateral air entry was equal. No wheezing, no crackles. ABDOMEN: Soft, nontender. No guarding or rebound tenderness. Bowel sounds normal. MUSCULOSKELETAL: No calf tenderness or pedal edema. No joint tenderness. No joint swelling. DISCHARGE MEDICATIONS: 1. Coreg 325 mg p.o. b.i.d. 2. Ramipril 10 mg p.o. b.i.d. 3. Enoxaparin 70 mg subcu b.i.d. 4. Nifedipine, new medication was added because of the elevated blood pressures in the last day, 30 mg p.o. daily. 5. Potassium chloride. 6. Prochlorperazine. 7. Warfarin 6 mg p.o. daily. DISCHARGE INSTRUCTIONS: Continue activity as tolerated. Advised to follow up with PCP tomorrow for daily INR and follow up with radiation therapy as per schedule. Follow up with Dr. Sanderson in 1-2 we eks. I spent 35 minutes with the patient on the day of discharge.
== END 2018-04-28 12:02 | disposition home or self-care (01) | DRG 813 ==
LOC: SCSER 18:23 → 2NO 20:30 → SCSER 22:16 → ONC 04-25 12:19
PROVIDERS: ADMIT Hospitalist; ATTEND Hospitalist
PROC: 30233K1 Transfusion of Nonautologous Frozen Plasma into Peripheral Vein, Percutaneous Approach (ICD-10-PCS; principal; 2018-04-23)
DX: D68.8 Other specified coagulation defects (principal); D61.810 Antineoplastic chemotherapy induced pancytopenia; E87.1 Hypo-osmolality and hyponatremia; C56.9 Malignant neoplasm of unspecified ovary; N17.9 Acute kidney failure, unspecified; T45.515A Adverse effect of anticoagulants, initial encounter; T45.1X5A Adverse effect of antineoplastic and immunosuppressive drugs, initial encounter; R19.7 Diarrhea, unspecified; Z95.2 Presence of prosthetic heart valve; I12.9 Hypertensive chronic kidney disease with stage 1 through stage 4 chronic kidney disease, or unspecified chronic kidney disease; N18.9 Chronic kidney disease, unspecified; Z91.14 Patient's other noncompliance with medication regimen; C53.9 Malignant neoplasm of cervix uteri, unspecified; E86.0 Dehydration; E87.6 Hypokalemia; F17.210 Nicotine dependence, cigarettes, uncomplicated; Y84.2 Radiological procedure and radiotherapy as the cause of abnormal reaction of the patient, or of later complication, without mention of misadventure at the time of the procedure
CPT/HCPCS: 36415; 36430; 77386; 80048; 80053; 82248; 83605; 83615; 83735; 84100; 84550; 85014; 85018; 85025; 85049; 85610; 85730; 86850; 86900; 86901; 87045; 87046; 87324; 87328; 87329; 87449; 87899; 96365; 96372; J0360; J1650; J3430; J3480; P9059

== ENCOUNTER 2018-05-04 08:14 | Day surgery (SDC) | payer OTHER ==
[2018-05-04] MEDS ORDERED: diphenhydrAMINE 25 MG CAP PO SCH (09:15)
[2018-05-04] MEDS ORDERED: Acetaminophen 500 MG TAB PO SCH (09:15)
[2018-05-04] MEDS ORDERED: Sodium Chloride 0.9% 10 ML ONE (09:21)
[2018-05-04 13:03] LABS: Hemoglobin 9.6 g/dL (12.0-16.0)
[2018-05-04 15:18] VITALS: BP 135/60; TEMP 97.7
== END 2018-05-04 15:18 | disposition home or self-care (01) ==
LOC: ONC/OP 08:14
PROVIDERS: ATTEND Internal Medicine Hematology & Oncology
DX: D64.9 Anemia, unspecified (principal); D69.6 Thrombocytopenia, unspecified
CPT/HCPCS: 36430; 77386; 85014; 85018; 86850; 86900; 86901; A4216; P9016

== ENCOUNTER 2018-07-12 14:09 | Outpatient (CLI) | payer OTHER ==
[~2018-07-12 14:09] MED LIST: Iopamidol 370 76% 100 ML VIAL ONE
--- NOTE | 2018-07-12 17:57 | CT ---
CT OF CHEST AND ABDOMEN AND PELVIS PERFORMED WITH IV CONTRAST ENHANCEMENT: Date: 07/12/18 HISTORY: Malignant neoplasm of overlying sites of cervix and uterus. COMPARISON: 03/28/18 PET scan. FINDINGS: CT CHEST: The lungs show a slightly mosaic lung pattern, which could be on the basis of air trapping. A small r ight pleural effusion has developed since the PET scan examination. There are some tiny subcentimeter pulmonary nodules seen. One 3-4 mm nodular area seen in the left upper lobe, axial image 22. There a re also some very small nodules seen in the right upper lobe, axial image 21. A slightly larger, tria ngular-shaped noted is also seen in the anterior segment of the right upper lobe on that same image. There are other small peripheral nodules noted. There are also atelectatic changes in the lung bases. Postop sternotomy changes are seen. There is a right paratracheal lymph node measuring 1.2 cm, stable in size as compared to the prior examination. CT ABDOMEN: CT of abdomen was performed with contrast enhancement. The liver shows no focal lesions. It measures 17.4 cm in length. There is a tiny hypodensity within the left lobe of the liver, subcentimeter in si ze, and most likely a tiny cyst. The spleen measures approximately 10.6 cm. Pancreas region is unrema rkable. The gallbladder has been removed. There has been development of some ascites. The most promin ent collection is along the liver margin. Right and left adrenal glands are normal in appearance. Right and left kidneys are normal in size. Ex ophytic cyst involving the upper pole of the right kidney is seen. There are subcentimeter periaortic lymph nodes noted which appear significantly enlarged. No significant mesenteric adenopathy. There i s no evidence of any soft tissue mass within the omentum. CT PELVIS: CT of pelvis was performed with contrast enhancement. There is some free fluid in the cul-de-sac yasmin on. The endometrium is much less distended than it was on the prior examination, but still there is f luid density seen within the endometrium. The pelvic lymphadenopathy is improved. The best example is a left common iliac lymph node seen on the previous examination measuring 12.0 mm, now measuring 7.0 mm in size. A left external iliac chain node located directly posterior to the external iliac vein m easured 1.2 cm in size, and now is a tiny 2-3 mm area. Also, a node which was present in the right il iac chain measuring approximately 14.0 mm on the prior examination now measures 8-9 mm. Review of osseous structures showed no lytic or blastic bony change. IMPRESSION: 1. Development of a small right pleural effusion and some mild ascites. Also, evidence of some edema change within the subcutaneous fat. 2. There are tiny, subcentimeter, pulmonary nodules identified bilaterally. These are not calcified and would require a follow-up examination. The possibility of metastatic lesions are not excluded. 3. There is a definite interval improvement in the pelvic lymphadenopathy and there is diminished di stention of the endometrium with fluid as compared to the prior study. POS: [facility]
== END 2018-07-12 14:10 | disposition home or self-care (01) ==
LOC: SCSCT 14:09
PROVIDERS: ATTEND Internal Medicine Hematology & Oncology
DX: C53.8 Malignant neoplasm of overlapping sites of cervix uteri (principal); J90 Pleural effusion, not elsewhere classified; R18.8 Other ascites; R91.8 Other nonspecific abnormal finding of lung field; R59.0 Localized enlarged lymph nodes
CPT/HCPCS: 71260; 74177

== ENCOUNTER 2018-09-28 08:27 | Outpatient (CLI) | payer OTHER ==
[2018-09-28] MEDS ORDERED: Iopamidol 370 76% 100 ML VIAL ONE (09:00)
--- NOTE | 2018-09-28 11:53 | CT ---
CT CHEST WITH IV CONTRAST CT ABDOMEN AND PELVIS WITH IV CONTRAST: Date: 09-28-18 History: Malignant neoplasm of overlapping sites involving the cervix. This is a follow up examinatio n for cervical cancer. Patient is post chemotherapy and radiation treatment. Comparison: 07-12-18, PET CT 03-28-18 FINDINGS: There has been interval resolution of the right pleural effusion. No pleural effusion is seen bilater ally on today's exam. Again noted are multiple bilateral predominately peripherally located nodular densities, the majority of which measure 4 mm or less. There is an irregular nodular density seen within the right upper lob e which measures approximately 7 mm with a more circumscribed pulmonary nodule measuring 7 mm in the right lower lobe. Both of these nodular densities were not identified on the prior study. Some of the peripherally located pulmonary nodules are more conspicuous than on the prior examination. Previously described enlarged pretracheal lymph node is again seen measuring 14 mm in short axis dime nsion which is similar in size to the prior study. No new or additional enlarged mediastinal or hilar lymph nodes are seen. A few nonenlarged subcentimeter lymph nodes are present in the mediastinum. Gas and contrast is seen in the esophagus, which may be related to gastroesophageal reflux. There is evidence of mitral valve replacement. Cardiac pacemaking device is again noted in place. The heart is mildly enlarged. Dense vascular calcifications are again seen in the thoracic aorta. CT ABDOMEN/PELVIS: A few tiny subcentimeter too small to characterize hypodense lesions are again seen in the left hepat ic lobe. There is slight peripheral nodular contour of the liver which could represent cirrhosis. The liver is at the upper limits of normal in size. Subcentimeter too small to characterize hypodense lesions are again seen in each kidney with 1.8 cm e xophytic hypodense lesions superior pole left kidney likely related to small cysts. The spleen, pancreas, and bilateral adrenal glands again demonstrate a normal CT appearance. There has been interval decrease in the amount of intraperitoneal free fluid when compared to the juno or study. A tiny amount of intraperitoneal free fluid is seen in the pelvis with mild presacral stran ding again present and unchanged from the prior exam. A small hypodense area is again seen within the endometrial canal with slight heterogeneity in this region as well. The larger area of diminished at tenuation centrally within the uterus noted on prior PET CT exam of 03-28-18 is not present. Small lymph nodes seen along the iliac chains bilaterally are smaller in size. No enlarged iliac tommy n lymph node is present on the current study. Largest lymph node along the right internal iliac chain measures approximately 7 mm in short axis dimension and previously measured 8 mm. Previously describ ed lymph nodes along the left internal iliac chain measuring 2-3 mm are imperceptible on today's exam . No new enlarged lymph nodes are appreciated. Saunders of the urinary bladder appear mildly thickened. This may be related to incomplete distention. T he adnexal structures are unchanged from prior exam. Dense vascular calcifications are seen in the abdominal aorta and involving the iliac arteries. Post cholecystectomy changes are again present. No lytic or sclerotic osseous lesions are identified. IMPRESSION: 1. Interval resolution of right pleural effusion with improvement in ascites. Only a tiny amount of f ree fluid is seen in the pelvis with mild stranding in the lower pelvis in a perirectal location evelia lar to the prior study. 2. Multiple bilateral subcentimeter pulmonary nodules, predominately peripherally located. Given mult iplicity, findings are worrisome for metastatic disease. There are two larger nodular densities prese nt on today's exam in the right upper lobe as well as in the right lower lobe. 3. Cardiomegaly. 4. Dense atherosclerotic vascular calcifications. 5. Diminished attenuation centrally within the uterus, but the presumed fluid in this region has dimi nished compared to prior study. 6. Left renal cyst with subcentimeter hypodense lesions again seen in each kidney, statistically also representing cysts. 7. Stable tiny subcentimeter too small to characterize hypodense lesions in the left hepatic lobe. 8. No enlarged lymph nodes are seen within the abdomen by CT size criteria, but there is a stable enl arged pretracheal lymph node measuring 1.4 cm in short axis dimension. POS: [facility]
== END 2018-09-28 08:28 | disposition home or self-care (01) ==
LOC: SCSCT 08:27
PROVIDERS: ATTEND Internal Medicine Hematology & Oncology
DX: C53.8 Malignant neoplasm of overlapping sites of cervix uteri (principal); J90 Pleural effusion, not elsewhere classified; R18.8 Other ascites; R91.8 Other nonspecific abnormal finding of lung field; J98.4 Other disorders of lung; I51.7 Cardiomegaly; N28.1 Cyst of kidney, acquired; K76.9 Liver disease, unspecified; N28.9 Disorder of kidney and ureter, unspecified; I70.0 Atherosclerosis of aorta; I70.8 Atherosclerosis of other arteries
CPT/HCPCS: 71260; 74177

== ENCOUNTER 2018-12-28 07:38 | Outpatient (CLI) | payer OTHER ==
--- NOTE | 2018-12-28 11:01 | CT ---
CT OF THE CHEST WITH CONTRAST CT OF THE ABDOMEN AND PELVIS WITH CONTRAST: COMPARISON: 09/28/2018. HISTORY: Cervical cancer. TECHNIQUE: 1. Multiple contiguous axial images were obtained in a CT of the chest with contrast. Coronal refor mats were performed. 2. Multiple contiguous axial images were obtained in a CT of the abdomen and pelvis with contrast. Coronal reformats were performed. P.o. contrast was administered. FINDINGS: CT CHEST: Emphysematous changes are seen in the lungs. There are scattered areas of nodular opacity in the gomez gs. Most of these likely represent increased interstitial thickening and scarring and none of the le sions are particularly suspicious. The larger lesion seen on the prior examination have resolved sug gesting that they were focal areas of atelectasis. No pneumothorax or pleural effusion are seen. The heart is enlarged. The patient is status post sternotomy for cardiac valve replacement. A pacem wade is seen with its leads in the right atrium and ventricle. No hilar adenopathy is seen. There i s a stable enlarged pretracheal lymph node now measuring 1.3 x 1.4 cm in size. Degenerative changes are seen in the spine. The chest wall soft tissues are unremarkable. CT ABDOMEN/PELVIS: The patient is status post cholecystectomy. No focal liver lesions are seen. The previously seen perez bcentimeter nonspecific hypodensities in the liver are not seen on today's examination. A hypodensity in the left kidney is stable and likely represents a cyst. The right kidney, adrenal g lands, spleen, and pancreas are unremarkable. No free air, free fluid, or stranding changes are seen in the abdomen and pelvis. The uterus is still in place. The ovaries are still in place. There is slight fullness in the regio n of the cervix is nonspecific but could potentially represent residual disease. No abdominal or pel adam lymphadenopathy are seen. Atherosclerotic calcifications are seen in the aorta. Degenerative changes are seen in the spine without suspicious osseous lesions identified. IMPRESSION: 1. No evidence of intrathoracic metastatic disease. 2. Emphysema and chronic interstitial lung disease. 3. Nonspecific stable pretracheal lymph node. This was seen on the PET CT was not hypermetabolic an d likely does not contain metastatic disease. 4. Resolution of hypodensities in the liver. 5. Fullness in the cervical region is nonspecific. This may be normal or it could potentially repre sent a small amount of residual disease. 6. Left renal cyst. POS: [facility]
== END 2018-12-28 07:39 | disposition home or self-care (01) ==
LOC: SCSCT 07:38
PROVIDERS: ATTEND Internal Medicine Hematology & Oncology
DX: C53.8 Malignant neoplasm of overlapping sites of cervix uteri (principal); N28.1 Cyst of kidney, acquired
CPT/HCPCS: 71260; 74177; 82565

== ENCOUNTER 2018-12-28 14:02 | Emergency (ER) | payer OTHER | END 2018-12-28 16:00 | disposition home or self-care (01) | LOC: ERS 14:02 | DX: B02.9 Zoster without complications (principal); I10 Essential (primary) hypertension; F17.210 Nicotine dependence, cigarettes, uncomplicated | CPT/HCPCS: 99282 ==

== ENCOUNTER 2021-01-16 10:08 | Outpatient (CLI) | payer OTHER | END 2021-01-16 10:09 | disposition home or self-care (01) | LOC: PET 10:08 | PROVIDERS: ATTEND Student in an Organized Health Care Education/Training Program | DX: C79.9 Secondary malignant neoplasm of unspecified site (principal); R59.0 Localized enlarged lymph nodes | CPT/HCPCS: 78815; A9552 ==

== ENCOUNTER 2021-01-17 14:46 | Outpatient (CLI) | payer OTHER ==
[2021-01-18 01:28] LABS: SARS-CoV-2 PCR by NAA Not Detected (NotDetected)
== END 2021-01-17 14:47 | disposition home or self-care (01) ==
LOC: LABBT 14:46
PROVIDERS: ATTEND Student in an Organized Health Care Education/Training Program
DX: Z01.812 Encounter for preprocedural laboratory examination (principal); Z20.822 Contact with and (suspected) exposure to COVID-19
CPT/HCPCS: 87635; U0003; U0005

== ENCOUNTER 2021-04-01 12:51 | Inpatient (IN) | payer OTHER ==
[2021-04-01] MEDS ORDERED: methylPREDNISolone Sod Succ/PF 125 MG/2 ML VIAL ONE (13:41)
[2021-04-01 14:20] LABS: Hemoglobin 6.7 g/dL (12.0-16.0); Mean Corpuscular HGB CONC 32.6 g/dL (32.0-36.0); Mean Corpuscular Hemoglobin 34.3 pg (27.0-31.0); Mean Platelet Volume 12.6 fL (7.4-10.4); Platelet Count 60 thou/uL (130-400); RBC Distribution Width 16.7 % (11.5-14.5); Red Blood Cell (RBC) Count 1.94 mill/uL (4.20-5.40); White Blood Cell (WBC) Count 4.7 thou/uL (4.8-10.8)
[2021-04-01 14:37] LABS: ALT (SGPT) 22 U/L (8-55); AST (SGOT) 34 U/L (5-34); Albumin 2.8 g/dL (3.4-4.8); Alkaline Phosphatase 125 U/L (40-110); Anion Gap 23 mmol/L (10-20); BUN (Urea Nitrogen) 83 mg/dL (9.8-20.1); Calc. Creatinine Clearance 0 mL/min (70-130); Calcium 8.2 mg/dL (7.8-10.44); Chloride 102 mmol/L (98-107); Globulin 2.3 g/dL (2.4-3.5); Glucose 104 mg/dL (80-115); Potassium 6.2 mmol/L (3.5-5.1); Protein, Total 5.1 g/dL (5.8-8.1); Sodium 128 mmol/L (136-145)
[2021-04-01 14:40] LABS: Anisocytosis SLIGHT = 6-15 cells (100X) (0-5/hpf); Large Platelets SLIGHT; Lymphocytes 18 % (21-51); MDiff Complete? YES; Macrocytosis SLIGHT = 6-15 cells (100X) (0-5/hpf); Monocytes 1 % (0-10); Neutrophil 81 % (42-75); Platelet Morphology Comment Appears Decreased; Polychromasia MODERATE = 3-4 cells (100X) (0-2/hpf)
[2021-04-01 14:45] LABS: Carbon Dioxide 9 mmol/L (23-31)
[2021-04-01 14:47] LABS: CKMB 3.1 ng/mL (0-6.6)
[2021-04-01] MEDS ORDERED: Aspirin Chewable 81 MG TAB ONE (15:18)
[2021-04-01] MEDS ORDERED: Enoxaparin Sodium 60 MG/0.6 ML SYRINGE ONE (15:18)
[2021-04-01 15:39] LABS: Analyzer IN Cardio ER; Base Excess -11.1 mEq/L (-2.0 to +3.0); Calcium, Ionized (venous) 1.06 mmol/L (1.16-1.32); Chloride (VBG) 102 mmol/L (98-106); Hemoglobin (Hb) 7.2 g/dL (11.7-16.0); Potassium (VBG) 6.23 mmol/L (3.70-5.30); Sodium 126.5 mmol/L (133-146)
[2021-04-01 15:40] LABS: Actual Bicarbonate (HCO3v) 14 mEq/L (22-28)
[2021-04-01 17:53] LABS: PTT 130.4 sec (22.9-36.1)
[2021-04-01 18:00] LABS: Prothrombin Time Greater than 150.0 sec (12.0-14.7)
[2021-04-01] MEDS ORDERED: Nitroglycerin 0.4 MG TAB (25 Tab Bottle) SL PRN (18:29)
[2021-04-01 18:34] LABS: CKMB 3.6 ng/mL (0-6.6)
[2021-04-01] MEDS ORDERED: Sodium Chloride 0.9% (PF) 10 ML VIAL FS PRN (18:45)
[2021-04-01] MEDS ORDERED: Pantoprazole 40 MG VIAL IVP SCH (18:45)
[2021-04-01 20:34] LABS: Anion Gap 23 mmol/L (10-20); BUN (Urea Nitrogen) 87 mg/dL (9.8-20.1); Calc. Creatinine Clearance 0 mL/min (70-130); Calcium 8.2 mg/dL (7.8-10.44); Chloride 103 mmol/L (98-107); Glucose 104 mg/dL (80-115); Sodium 128 mmol/L (136-145)
[2021-04-01 20:46] LABS: Carbon Dioxide 9 mmol/L (23-31); Potassium 6.6 mmol/L (3.5-5.1)
[2021-04-01] MEDS ORDERED: Atorvastatin Calcium 40 MG TAB PO SCH (21:00)
[2021-04-01] MEDS ORDERED: Dextrose 50% Abboject 50 ML SYRINGE SLOW IVP PRN (21:27)
[2021-04-01] MEDS ORDERED: Sodium Bicarb 50 MEQ/50 ML Abboject 8.4% SYRINGE IVP SCH (21:45)
[2021-04-01] MEDS ORDERED: Insulin Regular 300 UNITS/3 ML VIAL IVP SCH (21:45)
[2021-04-01] MEDS ORDERED: Albuterol Sulfate 2.5 mg/3 ml Neb NEB SCH (21:45)
[2021-04-01] MEDS ORDERED: Dextrose 50% Abboject 50 ML SYRINGE ONE (21:53)
[2021-04-01] MEDS ORDERED: Pantoprazole 40 MG VIAL ONE (21:53)
[2021-04-01] MEDS ORDERED: Sodium Bicarb 50 MEQ/50 ML Abboject 8.4% SYRINGE ONE (21:53)
[2021-04-01] MEDS ORDERED: Insulin Regular 300 UNITS/3 ML VIAL ONE (21:53)
[2021-04-01] MEDS ORDERED: Calcium Gluc 4.6 MEQ/10 ML (100 MG/ML) SLOW IVP SCH (22:00)
[2021-04-01] MEDS ORDERED: Calcium Gluc 4.6 MEQ/10 ML (100 MG/ML) ONE (22:05)
[2021-04-01] MEDS ORDERED: Albuterol Sulfate 1.25 MG/3 ML NEB ONE ×2 (23:00→23:01)
[2021-04-01] MEDS: Sodium Bicarbonate 150 MEQ in Dextrose 5% in Water 850 ML IV SCH (23:04)
[2021-04-01] MEDS: Carvedilol 25 MG TAB PO SCH (23:48)
[2021-04-02 00:33] LABS: Troponin I 0.231 ng/mL (< 0.028)
[2021-04-02 03:15] LABS: SARS-CoV-2 NAA Rapid Test Not Detected (NotDetected)
[2021-04-02 04:47] LABS: White Blood Cell (WBC) Count 0.8 thou/uL (4.8-10.8)
[2021-04-02 05:01] LABS: Hemoglobin 7.2 g/dL (12.0-16.0); Hypochromia SLIGHT = 6-15 cells (100X) (0-5/hpf); Lymphocytes 32 % (21-51); MDiff Complete? YES; Mean Corpuscular HGB CONC 35.2 g/dL (32.0-36.0); Mean Corpuscular Hemoglobin 34.3 pg (27.0-31.0); Mean Corpuscular Volume 97.3 fL (78.0-98.0); Mean Platelet Volume 12.5 fL (7.4-10.4); Neutrophil 64 % (42-75); Platelet Count 37 thou/uL (130-400); Platelet Morphology Comment Appears Decreased; RBC Distribution Width 17.5 % (11.5-14.5); Reactive Lymphocytes 4 % (0-10); Red Blood Cell (RBC) Count 2.09 mill/uL (4.20-5.40)
[2021-04-02 08:19] LABS: ALT (SGPT) 26 U/L (8-55); AST (SGOT) 32 U/L (5-34); Albumin 2.6 g/dL (3.4-4.8); Alkaline Phosphatase 113 U/L (40-110); Anion Gap 25 mmol/L (10-20); BUN (Urea Nitrogen) 113 mg/dL (9.8-20.1); Bilirubin, Direct 1.4 mg/dL (0.1-0.3); Bilirubin, Total 1.9 mg/dL (0.2-1.2); Calc. Creatinine Clearance 0 mL/min (70-130); Calcium 8.3 mg/dL (7.8-10.44); Carbon Dioxide 12 mmol/L (23-31); Cardiac Risk 5.8 (Less than 4.5); Chloride 102 mmol/L (98-107); Cholesterol 69 mg/dl (< 200 Desired); Glucose 142 mg/dL (80-115); HDL Cholesterol 12 mg/dL (>60 Neg Risk); LDL Cholesterol, Calculated 40 mg/dL; Protein, Total 4.9 g/dL (5.8-8.1); Sodium 133 mmol/L (136-145); Triglycerides 87 mg/dL (Less than 150)
[2021-04-02] MEDS ORDERED: Pantoprazole 40 MG VIAL ONE (08:30)
[2021-04-02 08:54] LABS: Bacteria/HPF None Seen HPF (None Seen); Bilirubin Negative (Negative); Blood, Urine Trace (Negative); Clarity Clear (Clear); Glucose, Urine (Dipstick) Normal (Negative); Ketone, Urine Negative (Negative); Leukocyte Negative Leu/uL (Negative); Nitrite Negative (Negative); Protein, Urine (Dipstick) Negative (Neg-Trace); RBC/HPF 0-3 HPF (0-3); Specific Gravity, Urine 1.016 (1.002-1.036); Squamous Epithelial None Seen HPF (0-3); Urobilinogen 3 mg/dL (Less than 2); WBC/HPF 0-3 HPF (0-3)
[2021-04-02 08:58] LABS: Urine Culture Reflex No No
[2021-04-02] MEDS ORDERED: CEFEPIME HCL IN DEXTROSE 5 % 1 GM in Premix Bag 1 BAG IVPB SCH ×2 (09:00)
[2021-04-02] MEDS ORDERED: CEFEPIME HCL IN DEXTROSE 5 % 1 GM/50 ML BAG IVPB SCH (09:00)
[2021-04-02] MEDS ORDERED: Pantoprazole 40 MG VIAL IVP SCH (09:00)
[2021-04-02] MEDS: Carvedilol 25 MG TAB PO SCH (10:00)
[2021-04-02 12:33] LABS: PTT 87.7 sec (22.9-36.1)
[2021-04-02 12:34] LABS: Prothrombin Time 142.6 sec (12.0-14.7)
[2021-04-02 12:40] LABS: INR-International Normal Ratio 20.5
[2021-04-02 15:23] LABS: Hemoglobin 7.7 g/dL (12.0-16.0); Mean Corpuscular HGB CONC 35.1 g/dL (32.0-36.0); Mean Platelet Volume 13.2 fL (7.4-10.4); Platelet Count 35 thou/uL (130-400); RBC Distribution Width 17.3 % (11.5-14.5); Red Blood Cell (RBC) Count 2.25 mill/uL (4.20-5.40); White Blood Cell (WBC) Count 0.3 thou/uL (4.8-10.8)
[2021-04-02 16:20] LABS: Anion Gap 21 mmol/L (10-20); BUN (Urea Nitrogen) 119 mg/dL (9.8-20.1); Calc. Creatinine Clearance 0 mL/min (70-130); Calcium 8.4 mg/dL (7.8-10.44); Carbon Dioxide 16 mmol/L (23-31); Chloride 100 mmol/L (98-107); Glucose 128 mg/dL (80-115); Potassium 5.7 mmol/L (3.5-5.1); Sodium 131 mmol/L (136-145)
[2021-04-02 16:21] LABS: Iron Binding Capacity, Total 238 mcg/dL (265-497)
[2021-04-02 16:22] LABS: Iron 235 ug/dL (50-170)
[2021-04-02 16:43] LABS: Ferritin 1030.38 ng/mL (10-291); Thyroid Stimulating Hormone 2.2976 uIU/mL (0.35-4.94)
[2021-04-02] MEDS: Sodium Bicarbonate 150 MEQ in Dextrose 5% in Water 850 ML IV SCH (18:55)
[2021-04-03 04:59] LABS: Bacteria/HPF None Seen HPF (None Seen); Bilirubin Negative (Negative); Blood, Urine Negative (Negative); Clarity Clear (Clear); Glucose, Urine (Dipstick) Normal (Negative); Ketone, Urine Negative (Negative); Leukocyte Negative Leu/uL (Negative); Nitrite Negative (Negative); Protein, Urine (Dipstick) Negative (Neg-Trace); RBC/HPF 0-3 HPF (0-3); Specific Gravity, Urine 1.016 (1.002-1.036); Squamous Epithelial None Seen HPF (0-3)
[2021-04-03 05:00] LABS: Urine Culture Reflex Yes Yes
[2021-04-03 05:11] LABS: Creatinine, Urine 39.59 mg/dL (47-110)
[2021-04-03] MEDS ORDERED: Folic Acid 1 MG TAB PO SCH (09:00)
== END 2021-04-02 16:47 | disposition expired | DRG 808 ==
LOC: ERS 12:51 → ERHOLD 16:41
PROVIDERS: ADMIT Internal Medicine; ATTEND Internal Medicine
PROC: 30233N1 Transfusion of Nonautologous Red Blood Cells into Peripheral Vein, Percutaneous Approach (ICD-10-PCS; principal; 2021-04-01)
PROC: 0T9B70Z Drainage of Bladder with Drainage Device, Via Natural or Artificial Opening (ICD-10-PCS; 2021-04-01)
DX: D61.810 Antineoplastic chemotherapy induced pancytopenia (principal); I21.4 Non-ST elevation (NSTEMI) myocardial infarction; J96.01 Acute respiratory failure with hypoxia; N17.9 Acute kidney failure, unspecified; C79.9 Secondary malignant neoplasm of unspecified site; D68.9 Coagulation defect, unspecified; I42.8 Other cardiomyopathies; J90 Pleural effusion, not elsewhere classified; D64.81 Anemia due to antineoplastic chemotherapy; Z20.822 Contact with and (suspected) exposure to COVID-19; T45.1X5A Adverse effect of antineoplastic and immunosuppressive drugs, initial encounter; E78.5 Hyperlipidemia, unspecified; I50.9 Heart failure, unspecified; I11.0 Hypertensive heart disease with heart failure; I25.10 Atherosclerotic heart disease of native coronary artery without angina pectoris; F17.210 Nicotine dependence, cigarettes, uncomplicated; C53.9 Malignant neoplasm of cervix uteri, unspecified; R59.1 Generalized enlarged lymph nodes; E53.8 Deficiency of other specified B group vitamins; E78.00 Pure hypercholesterolemia, unspecified; Z95.2 Presence of prosthetic heart valve; Z95.810 Presence of automatic (implantable) cardiac defibrillator; Z79.01 Long term (current) use of anticoagulants; Z79.899 Other long term (current) drug therapy; Z95.1 Presence of aortocoronary bypass graft; Z90.49 Acquired absence of other specified parts of digestive tract
CPT/HCPCS: 36415; 36430; 71045; 71250; 76770; 80048; 80053; 80061; 81001; 82553; 82570; 82607; 82728; 82746; 82805; 83540; 83550; 84300; 84443; 84484; 85025; 85610; 85730; 86850; 86900; 86901; 87040; 87086; 93005; 93010; 93306; 94640; 96372; 96374; C9113; J0692; J1650; J1815; J2001; J2930; J7070; J7611; J7620; P9016; U0002; U0005

== ENCOUNTER 2021-04-02 18:05 | Inpatient (IN) | payer OTHER ==
[2021-04-02 18:30] VITALS: BMI 24.3
[2021-04-02] MEDS ORDERED: Loratadine 10 MG TAB PO PRN (19:40)
[2021-04-02 20:25] VITALS: BP 103/53
[2021-04-02] MEDS ORDERED: Acetaminophen 325 MG TAB PO PRN (20:54)
[2021-04-02] MEDS ORDERED: Ondansetron PF 4 MG/2 ML Vial IVP PRN (20:54)
[2021-04-02] MEDS ORDERED: Atorvastatin Calcium 40 MG TAB PO SCH (21:00)
[2021-04-02] MEDS ORDERED: Nitroglycerin 0.4 MG TAB (25 Tab Bottle) SL PRN (21:01)
[2021-04-02] MEDS ORDERED: Sodium Bicarbonate 150 MEQ in Dextrose 5% in Water 1,000 ML IV SCH (21:45)
[2021-04-02] MEDS ORDERED: CEFEPIME HCL IN DEXTROSE 5 % 1 GM in Premix Bag 1 BAG IVPB SCH (23:00)
[2021-04-03] MEDS ORDERED: Carvedilol 25 MG TAB PO SCH (08:00)
[2021-04-03 08:03] LABS: Hemoglobin 6.2 g/dL (12.0-16.0); Mean Corpuscular HGB CONC 35.3 g/dL (32.0-36.0); Mean Corpuscular Hemoglobin 34.6 pg (27.0-31.0); Mean Corpuscular Volume 97.9 fL (78.0-98.0); Mean Platelet Volume 13.3 fL (7.4-10.4); Platelet Count 26 thou/uL (130-400); RBC Distribution Width 17.3 % (11.5-14.5); White Blood Cell (WBC) Count 0.5 thou/uL (4.8-10.8)
[2021-04-03 08:15] LABS: Anion Gap 20 mmol/L (10-20); BUN (Urea Nitrogen) 124 mg/dL (9.8-20.1); Calc. Creatinine Clearance 29 mL/min (70-130); Calcium 8.1 mg/dL (7.8-10.44); Carbon Dioxide 21 mmol/L (23-31); Chloride 99 mmol/L (98-107); Glucose 130 mg/dL (80-115); Potassium 5.5 mmol/L (3.5-5.1); Sodium 134 mmol/L (136-145)
[2021-04-03 08:26] LABS: Prothrombin Time Greater than 150.0 sec (12.0-14.7)
[2021-04-03 08:46] LABS: Anisocytosis SLIGHT = 6-15 cells (100X) (0-5/hpf); MDiff Complete? YES; Platelet Morphology Comment Appears Decreased
[2021-04-03 08:48] LABS: #Lymphocytes 0.4 thou/uL (1.20-3.40); #Monocytes 0.1 thou/uL (0.11-0.59); %Lymphocytes 74.5 % (21.0-51.0); %Monocytes 15.6 % (0.0-10.0); %Neutrophils 9.8 % (42.0-75.0)
[2021-04-03] MEDS ORDERED: Folic Acid 1 MG TAB PO SCH (09:00)
[2021-04-03] MEDS ORDERED: Pantoprazole 40 MG VIAL IVP SCH (09:00)
[2021-04-03] MEDS ORDERED: Phytonadione 5 MG TAB PO SCH (10:30)
[2021-04-03] MEDS ORDERED: Furosemide 20 MG TAB PO SCH (10:30)
[2021-04-03] MEDS ORDERED: methylPREDNISolone Sod Succ 40 MG VIAL IVP SCH (14:00)
[2021-04-03] MEDS ORDERED: Ondansetron PF 4 MG/2 ML Vial IVP PRN (14:55)
[2021-04-03] MEDS ORDERED: Calcium Chloride 1 GM/10 ML Abboject SYRINGE ONE ×3 (16:43→17:20)
[2021-04-03] MEDS ORDERED: Sodium Bicarb 50 MEQ/50 ML Abboject 8.4% SYRINGE ONE (16:43)
[2021-04-03] MEDS ORDERED: EPINEPHrine 1 MG/10 ML Abboject SYRINGE ONE (16:43)
[2021-04-03] MEDS ORDERED: levETIRAcetam in NS 1,000 MG in Premix Bag 1 BAG IVPB SCH (17:15)
[2021-04-03 19:13] VITALS: TEMP 97.4
== END 2021-04-03 17:12 | disposition expired ==
LOC: IMCU/EMU 18:05 → EDSTATUS 04-11 11:00
PROVIDERS: ADMIT Internal Medicine; ATTEND Internal Medicine
PROC: 30233N0 Transfusion of Autologous Red Blood Cells into Peripheral Vein, Percutaneous Approach (ICD-10-PCS; 2021-04-01)
PROC: 5A12012 Performance of Cardiac Output, Single, Manual (ICD-10-PCS; principal; 2021-04-03)
PROC: 30233L1 Transfusion of Nonautologous Fresh Plasma into Peripheral Vein, Percutaneous Approach (ICD-10-PCS; 2021-04-03)
PROC: 30233K1 Transfusion of Nonautologous Frozen Plasma into Peripheral Vein, Percutaneous Approach (ICD-10-PCS; 2021-04-03)
PROC: 5A1935Z Respiratory Ventilation, Less than 24 Consecutive Hours (ICD-10-PCS; 2021-04-03)
PROC: 0BH18EZ Insertion of Endotracheal Airway into Trachea, Via Natural or Artificial Opening Endoscopic (ICD-10-PCS; 2021-04-03)
DX: I21.4 Non-ST elevation (NSTEMI) myocardial infarction (principal); J96.01 Acute respiratory failure with hypoxia; D61.810 Antineoplastic chemotherapy induced pancytopenia; N17.9 Acute kidney failure, unspecified; E87.2 Acidosis; D68.32 Hemorrhagic disorder due to extrinsic circulating anticoagulants; I42.8 Other cardiomyopathies; Z51.5 Encounter for palliative care; C53.8 Malignant neoplasm of overlapping sites of cervix uteri; I50.9 Heart failure, unspecified; T45.1X5A Adverse effect of antineoplastic and immunosuppressive drugs, initial encounter; D70.1 Agranulocytosis secondary to cancer chemotherapy; E87.5 Hyperkalemia; C53.9 Malignant neoplasm of cervix uteri, unspecified; T45.515A Adverse effect of anticoagulants, initial encounter; I11.0 Hypertensive heart disease with heart failure; R55 Syncope and collapse; R56.9 Unspecified convulsions; I46.9 Cardiac arrest, cause unspecified; Z95.1 Presence of aortocoronary bypass graft; Z95.810 Presence of automatic (implantable) cardiac defibrillator
CPT/HCPCS: 36415; 36430; 70450; 71045; 86850; 86900; 86901; 94640; C9113; J0171; J0692; J2405; J2920; J7070; J7620; P9016; P9059